=== PATIENT | female | born 1935 | race Caucasian/White ===

== ENCOUNTER 2017-09-26 19:01 | Emergency (ER) | payer OTHER ==
[~2017-09-26] VITALS: Ht 162.6 cm; Wt 59.0 kg
[2017-09-26] MEDS ORDERED: Amitriptyline H25 MG PO (19:15)
[2017-09-26] MEDS ORDERED: ASPI81CH PO (19:16)
[2017-09-26] MEDS ORDERED: GABA100 PO (19:16)
[2017-09-26] MEDS ORDERED: SIMV10 PO (19:16)
[2017-09-26] MEDS ORDERED: ATEN25 PO (19:16)
[2017-09-26] MEDS ORDERED: ALBU90OI INH (19:17)
== END 2017-09-26 20:13 | disposition home or self-care (01) ==
LOC: ER 19:01
DX: S16.1XXA Strain of muscle, fascia and tendon at neck level, initial encounter (principal); Z79.899 Other long term (current) drug therapy; Z79.82 Long term (current) use of aspirin; J44.9 Chronic obstructive pulmonary disease, unspecified; I10 Essential (primary) hypertension; E78.5 Hyperlipidemia, unspecified; W01.0XXA Fall on same level from slipping, tripping and stumbling without subsequent striking against object, initial encounter
CPT/HCPCS: 36415; 72125; 80069; 84439; 84443; 85018; 99284

== ENCOUNTER → 2018-04-02 | Outpatient (CLI) | payer OTHER ==
[~2018-04-02] MED LIST: ALBU90OI INH; ASPI81CH PO; ATEN25 PO; Amitriptyline H25 MG PO; GABA100 PO; SIMV10 PO
== END | disposition home or self-care (01) ==
LOC: LAB SHORT 08:16 → PLD 08:16
DX: D03.61 Melanoma in situ of right upper limb, including shoulder (principal)
CPT/HCPCS: 88305

== ENCOUNTER → 2019-02-22 | Outpatient (CLI) | payer OTHER ==
[~2019-02-22] MED LIST changes: +ACET325 PO; +AMIT25 PO; +ATEN50 PO; +CALCIUM CARBONATE PO; +CIPR500 PO; +FAMO20 PO; +FLUTICASONE-SA1 EAC4 IH; +Florastor250 MG PO; +GABA300 PO; +HYDCHL12.5 PO; +METR500 PO; +ONDA4ODT MM; +POTCHL20ER PO; +Zocor20 MG PO
[2019-02-23 05:41] LABS: Stool Occult Bld Immuno 1 Negative (NEGATIVE)
== END | disposition home or self-care (01) ==
LOC: LAB 14:36 → LAB SHORT 14:36
PROVIDERS: Internal Medicine Gastroenterology
DX: K62.5 Hemorrhage of anus and rectum (principal); K57.30 Diverticulosis of large intestine without perforation or abscess without bleeding
CPT/HCPCS: 82274

== ENCOUNTER → 2019-02-23 | Outpatient (CLI) | payer OTHER ==
[2019-02-24 06:11] LABS: Stool Occult Bld Immuno 1 Negative (NEGATIVE)
== END | disposition home or self-care (01) ==
LOC: LAB FUT 02-22 14:45 → LAB SHORT 11:15 → LAB 11:15
PROVIDERS: Internal Medicine Gastroenterology
DX: K57.30 Diverticulosis of large intestine without perforation or abscess without bleeding (principal); K62.5 Hemorrhage of anus and rectum
CPT/HCPCS: 82274

== ENCOUNTER → 2019-05-26 | Outpatient (CLI) | payer OTHER | END | disposition home or self-care (01) | LOC: LAB SHORT 14:17 → PLD 14:17 | DX: D04.72 Carcinoma in situ of skin of left lower limb, including hip (principal) | CPT/HCPCS: 88305 ==

== ENCOUNTER → 2020-01-13 | Outpatient (CLI) | payer OTHER | END | disposition home or self-care (01) | LOC: LAB 18:35 → LAB SHORT 18:35 | DX: I83.009 Varicose veins of unspecified lower extremity with ulcer of unspecified site (principal); L97.909 Non-pressure chronic ulcer of unspecified part of unspecified lower leg with unspecified severity | CPT/HCPCS: 87070; 87075; 87205 ==

== ENCOUNTER → 2022-08-16 | Outpatient (CLI) | payer OTHER ==
[2022-08-16 17:47] LABS: Free Thyroxine 1.31 ng/dL (0.70-1.60)
[2022-08-16 17:52] LABS: Thyroid Stimulating Hormone 1.95 uIU/mL (0.360-4.800)
== END | disposition home or self-care (01) ==
LOC: LAB 16:50 → LAB SHORT 16:50
PROVIDERS: Physician Assistant
DX: E03.9 Hypothyroidism, unspecified (principal)
CPT/HCPCS: 84439; 84443